=== PATIENT | male | born 1945 | race Caucasian/White ===

== ENCOUNTER 2025-02-06 10:23 | Outpatient (REF) | payer OTHER, SELFPAY ==
[2025-02-06 12:16] LABS: Albumin Level 4.2 g/dL (3.5-5.0); Calcium 9.3 mg/dL (8.4-10.2)
[2025-02-06 12:33] LABS: Parathyroid Hormone Intact 83.9 pg/mL (8.7-77.1)
== END 2025-02-06 10:24 | disposition home or self-care (01) ==
LOC: HO.LAB 10:23
PROVIDERS: Visit Provider Internal Medicine Endocrinology, Diabetes & Metabolism
DX: E21.3 Hyperparathyroidism, unspecified (principal); E55.9 Vitamin D deficiency, unspecified; Z79.899 Other long term (current) drug therapy
CPT/HCPCS: 36415; 82040; 82306; 82310; 83970

== ENCOUNTER 2025-02-06 10:23 | Outpatient (AMB) | payer OTHER, SELFPAY ==
--- NOTE | 2025-02-06 10:37 | A.OFFVIS_ITS ---
Vital Signs 02/06/25 10:38 Height 5 ft 9 in Weight 178 lb 9.191 oz BMI 26.4 BP 120/80 Blood Pressure Location Rt brachial Position Sitting Pulse 86 Pulse Source Pulse Oximeter Pulse Oximetry (%) 98 Oxygen Delivery Method Room Air Intake Visit Reasons: Hyperparathyroidism Intake Note: New patient externally referred from the [facility] for Hyperparathy[facility]. Agency Development Manager Required: No Accompanied by: Other Relationship Allergies morphine Allergy (Mild, Verified 02/06/25 10:42) Unknown Medication List - Last Reconciled 02/06/25 by Douglas Sarabia MD carbidopa-levodopa 25-100 mg (Dhivy) 1 tab PO QID doxycycline hyclate 100 mg PO DAILY febuxostat (Uloric) 40 mg PO DAILY lidocaine 5% 1 patch topical DAILY pramipexole 0.25 mg PO BEDTIME pravastatin 40 mg PO BEDTIME rasagiline 1 mg PO DAILY HPI Comments Details: History of Present Illness The patient is an 79 year old male presenting for evaluation of an abnormal parathyroid hormone (PTH) level identified at the [facility]. He denies any prior history of an abnormal PTH level. He has a history of breaking his ribs multiple times, with the most recent occurrence this spring after a fall from a standing height. He denies a history of hip or spine fractures, kidney stones, or having had a bone density scan for osteoporosis. His vitamin D level was recently checked and was low-normal at 30. He reports taking an nule-dfv-dfpnbhr vitamin D supplement once a day, but the exact dosage is unknown. He denies taking calcium supplements, a daily multivitamin, hydrochlorothiazide, lithium, or biotin. There is no known family history of kidney stones or high calcium levels. Medication History - [place]: Patient denies prior use. - Hydrochlorothiazide: Patient denies prior use. Medications - Vitamin D: Takes an unknown dose of an lrks-dld-rgsgmvx supplement once daily. - Calcium supplements: Denies use. - Biotin supplement: Denies use. - Multivitamin: Denies use. Exercise Diet History Results - Labs (prior to visit): - Parathyroid hormone: Elevated at 112 - Vitamin D: 30 (low-normal). [facility] Medical History (Updated 02/06/25 @ 10:58 by SUZIE Manriquez) History of chronic pain History of vitamin D deficiency Hx of urinary tract infection Hx of glaucoma Hx of sepsis History of urinary retention History of restless legs syndrome Hx of Parkinson's disease Hx of obesity Hx of hyperkalemia Mixed hyperlipidemia Hx of malignant neoplasm of rectum Hx of malignant neoplasm of prostate HX: group home anticoagulant use History of hoarseness Hx of gout Hx of gastroesophageal reflux (GERD) Hx of essential hypertension History of dysphagia Hx of constipation History of acute renal failure History of alcohol dependence Hyperparathyroidism Surgical History (Updated 02/06/25 @ 10:57 by SUZIE Manriquez) Hx of colostomy Family History Father No problems noted. Mother No problems noted. Social History Alcohol intake: current Alcohol intake frequency: former alcohol drinker Patient Tobacco Use Status: Never used Tobacco Review of Systems Narrative Review of Systems - Musculoskeletal: Reports a history of multiple rib fractures, including one this spring after a fall. - Denies history of hip or spine fractures or a diagnosis of osteoporosis. - Genitourinary: Denies a history of kidney stones. - Endocrine: Denies a family history of high calcium levels. Physical Exam Exam Exam: Physical Exam - General: Patient examined while seated in a chair. - Neck: Thyroid palpated during swallowing; no abnormalities noted. - Cardiovascular: Brief heart auscultation performed. Absence of Cushingoid features. Absence of acromegalic features. Neck exam reveals nl size thyroid about 15 gms. No thyroid nodules palpable. Heart S1 S2, Reg R/R. No M/R G. Skin exam reveals absence of vitiligo or acanthosis nigricans. Visual exam of foot performed. No ulcerations or open lesions. No inter digit maceration or fissuring. No onychomycosis, no callouses. Sensation intact to monofilament exam. Vibratory sensation is normal with 128 Hz tuning fork. Vital Signs: Last Vital Signs Pulse 86 02/06/25 10:38 BP 120/80 02/06/25 10:38 Pulse Ox 98 02/06/25 10:38 Oxygen Delivery Method Room Air 02/06/25 10:38 Const Other: Thyroid gland is normal size weighs about 15 g. There are no thyroid nodules palpated Assessment & Plan Assessment & Plan (1) Hyperparathyroidism: Code(s): E21.3 - Hyperparathyroidism, unspecified Category: Medical Plan: This 79[facility]year-old white [facility] have an elevated PTH was low normal calcium level . Differential diagnosis includes the presence of secondary hyperparathyroidism or primary hyperparathyroidism. We will repeat calcium, albumin, PTH, 25 hydroxy vitamin-D again today. Depending upon above, further action will be taking including potentially repeating the lab again at [facility] ([facility]) unless clear-cut evidence of primary hyperparathyroidism or secondary hyperparathyroidism is present Plan Assessment and Plan 1. Hyperparathyroidism The patient presents for an evaluation of an elevated PTH level, consistent with hyperparathyroidism. The differential diagnosis includes secondary hyperparathyroidism, likely due to vitamin D insufficiency, or primary hyperparathyroidism, which would be caused by a benign growth on a parathyroid gland. The plan is to obtain labs today, including a repeat PTH, calcium, 25- hydroxyvitamin D, and albumin level to differentiate the cause. If results are equivocal, repeat testing at [facility] may be necessary due to known assay variability. 2. Vitamin D insufficiency His previous lab showed a low-normal vitamin D level of 30, which may be contributing to the elevated PTH. It is recommended that he start taking 2,000 international units of pptg-vql-kjaaovv vitamin D daily. The vitamin D level will be rechecked via labs drawn today. 4. Follow-up The patient will have a follow-up appointment in approximately 3.5 to 4 months to review lab results. If all lab results return to normal, he can cancel this appointment. The patient had an opportunity to ask questions regarding treatment plan. The patient expressed understanding and agreement with the above treatment plan. Patient was informed and verbally consented to the use of an ambient scribe for clinic note documentation during this visit. Discussion Notes I discussed with the patient and his stepson the meaning of an elevated parathyroid hormone (PTH) level, a condition known as hyperparathyroidism. I explained that this is not a life-threatening or serious condition. I outlined the two primary possibilities: secondary hyperparathyroidism due to a low vitamin D level, or primary hyperparathyroidism caused by a benign growth on one of the glands. I explained the plan to order bloodwork today (calcium, PTH, vitamin D, albumin) to help differentiate the cause. I educated him on the potential for inaccurate PTH lab results and the possibility that he might need to have his blood drawn again at a different lab for confirmation. I advised him to begin taking auju-deb-etvjbrs vitamin D 2,000 international units daily, as his previous lev el was low-normal. We will schedule a follow-up visit in approximately four months, but I informed him that he can cancel this appointment if all his lab results return to normal. I provided two websites, the [place] [email or web address] and [email or web address], as resources for more information. Patient Instructions - Please go to the lab here at the hospital today to have your blood drawn. - You do not need to fast (have an empty stomach) for this test. - Start taking an ryjg-krv-cbnrfyk vitamin D supplement of 2,000 international units (IU) every day. - A follow-up appointment is scheduled for about four months from now. - If your lab results come back normal, you can call to cancel this appointment. - The condition being investigated is not serious or life-threatening. - Orders: Orders Albumin Level Today E21.3 - Hyperparathyroidism, unspecified Vitamin D 25-OH Total Today E21.3 - Hyperparathyroidism, unspecified Calcium Today E21.3 - Hyperparathyroidism, unspecified Parathyroid Hormone Intact Today E21.3 - Hyperparathyroidism, unspecified Coding Level of Care Code New Pt Level 4 (77088) Diagnoses Hyperparathyroidism E21.3
[2025-02-06 10:38] VITALS: BP 120/80; PULSE 86; O2SAT 98; BMI 26.4
== END 2025-02-06 11:07 | disposition home or self-care (01) ==
LOC: HO.ENCR 10:23
PROVIDERS: Referring Provider Internal Medicine Endocrinology, Diabetes & Metabolism; Visit Provider Internal Medicine Endocrinology, Diabetes & Metabolism
DX: E21.3 Hyperparathyroidism, unspecified (principal)
CPT/HCPCS: 99204